=== PATIENT | female | born 1975 | race American Indian/Alaskan Native ===

== ENCOUNTER 2016-05-21 05:17 | Emergency (ER) | payer OTHER ==
[2016-05-21 06:12] LABS: Basophils % (Auto) 0.7 % (0.0-1.8); Hematocrit 32.3 % (30.3-42.9); Hemoglobin 10.1 gm/dl (10.1-14.3); Mean Corpuscular HGB Conc 31 % (30-34); Platelet Count 426 K/mm3 (140-440); Red Blood Count 4.79 M/mm3 (3.65-5.03); Red Cell Distribution Width 18.3 % (13.2-15.2); White Blood Count 9.3 K/mm3 (4.5-11.0)
[2016-05-21 06:13] LABS: Mean Corpuscular Hemoglobin 21 pg (28-32); Mean Corpuscular Volume 68 fl (79-97)
[2016-05-21 06:20] LABS: BUN/Creatinine Ratio 14.28; Blood Urea Nitrogen 10 mg/dL (7-17); Calcium 8.4 mg/dL (8.4-10.2); Carbon Dioxide 23 mmol/L (22-30); Chloride 104.5 mmol/L (98-107); Glucose 93 mg/dL (65-100); Potassium 3.7 mmol/L (3.6-5.0); Sodium 141 mmol/L (137-145)
[2016-05-21 06:21] LABS: Anion Gap 17 mmol/L
--- NOTE | 2016-05-21 11:37 | XRay Report ---
Chest 2 views: History: Chest pain. Findings: Borderline cardiomegaly. Trachea is midline. No consolidation, pneumothorax or pleural effusion. Impression: Borderline cardiomegaly. No acute changes.
--- NOTE | 2016-05-21 13:04 | Emergency Department Report ---
HPI - General Chief Complaint: Chest Pain Time Seen by Provider: 05/21/16 10:21 - HPI HPI: Chief complaint: Chest pain and sore throat HPI: Patient complains of right-sided chest pain sharp and radiates from the low her right scapula to her right anterior chest wall. Patient states it's worse when she moves her arm and takes a deep breath. Patient states she is not short of breath but it does hurt to breathe. Patient denies any cough or cold or fever. Patient states she does have sore throat and pain when she swallows to the right side of her neck. Patient denies hypertension, diabetes, recent surgery recheck travel history of coronary artery disease or family history of coronary artery disease and no history of DVTs. Mode of arrival: private car Source: Patient Began: 9:00 last night Duration: Continuous Context: See above Quality: Sharp Severity: 9 out of 10 Improved with: Nothing Worsened with: See above Associated signs and symptoms: See above ED Past Medical Hx - Past Medical History Previous Medical History?: No - Surgical History Past Surgical History?: Yes Additional Surgical History: - Social History Smoking Status: Never Smoker Substance Use Type: None - Medications Home Medications: Home Medications Medication Instructions Recorded Confirmed Last Taken Type Azithromycin [Zithromax TAB] 500 mg PO QDAY #3 tablet 05/21/16 Unknown Rx traMADol [Ultram 50 MG tab] 50 mg PO Q6HR PRN #20 tablet 05/21/16 Unknown Rx ED Review of Systems ROS: Stated complaint: CP/ADILENE Other details as noted in HPI ROS Constitutional: No fever ENT: See HPI Cardiovascular: chest pain Respiratory: No sob or cough GI: No nausea vomiting or diarrhea : No dysuria frequency or urgency, Skin: No rash Neuro: No focal weakness or numbness Psych: No depression Lamont/lymph: No edema Physical Exam - Physical Exam Vital Signs: Vital Signs 05/21/16 05/21/16 05/21/16 05:29 07:37 08:52 Temperature 98.5 F 98.6 F Pulse Rate 85 96 H Respiratory 18 20 18 Rate Blood Pressure 149/100 Blood Pressure 171/102 [Right] O2 Sat by Pulse 100 100 99 Oximetry 05/21/16 08:53 Temperature Pulse Rate 86 Respiratory 20 Rate Blood Pressure Blood Pressure 133/90 [Right] O2 Sat by Pulse 100 Oximetry Physical Exam: GENERAL: The patient is well-developed well-nourished . HEENT: Normocephalic. Atraumatic. Extraocular motions are intact. Patient has moist mucous membranes. NECK: Supple. No meningitic signs are noted. There is no adenopathy noted. Tenderness to the right anterior lateral neck without swelling or erythema. Pharynx is slightly enlarged tonsils without exudate. CHEST/LUNGS: Clear to auscultation. There is no respiratory distress noted. Tender right para lumbar musculature reproduces pain as does palpation to the right anterior chest wall. HEART/CARDIOVASCULAR: Regular. There is no tachycardia. There is no gallop rub or murmur. ABDOMEN: Abdomen is soft, nontender. Patient has normal bowel sounds. There is no abdominal distention. SKIN: There is no rash. There is no edema. There is no diaphoresis. NEURO: The patient is awake, alert, and oriented. The patient is cooperative. The patient has no focal neurologic deficits. The patient has normal speech. MUSCULOSKELETAL: There is no tenderness or deformity. There is no limitation range of motion. There is no evidence of acute injury. ED Course Vital Signs 05/21/16 05/21/16 05/21/16 05:29 07:37 08:52 Temperature 98.5 F 98.6 F Pulse Rate 85 96 H Respiratory 18 20 18 Rate Blood Pressure 149/100 Blood Pressure 171/102 [Right] O2 Sat by Pulse 100 100 99 Oximetry 05/21/16 08:53 Temperature Pulse Rate 86 Respiratory 20 Rate Blood Pressure Blood Pressure 133/90 [Right] O2 Sat by Pulse 100 Oximetry ED Medical Decision Making - Lab Data Result diagrams: 05/21/16 05:43 05/21/16 05:43 Laboratory Tests 05/21/16 05/21/16 05/21/16 05:43 08:45 12:01 Calcium 8.4 Troponin T < 0.010 < 0.010 < 0.010 - EKG Data -: EKG Interpreted by Me EKG shows normal: sinus rhythm Rate: normal (91) - EKG Data When compared to previous EKG there are: previous EKG unavailable Interpretation: normal EKG - Radiology Data interpreted by me: Chest x-ray within normal limits. Critical care attestation.: If time is entered above; I have spent that time in minutes in the direct care of this critically ill patient, excluding procedure time. ED Disposition Clinical Impression: Atypical chest pain Pharyngitis Qualifiers: Pharyngitis/tonsillitis etiology: unspecified etiology Qualified Code(s): J02.9 - Acute pharyngitis, unspecified Disposition: DISCHARGED TO HOME OR SELFCARE Is pt being admited?: No Does the pt Need Aspirin: No Condition: Stable Instructions: Chest Pain (ED), Pharyngitis (ED) Prescriptions: Azithromycin [Zithromax TAB] 500 mg PO QDAY #3 tablet traMADol [Ultram 50 MG tab] 50 mg PO Q6HR PRN #20 tablet PRN Reason: Pain Referrals: PRIMARY CARE,MD [Primary Care Provider] - 3-5 Days Time of Disposition: 12:54
[2016-05-21 13:19] VITALS: BP 129/87
== END 2016-05-21 13:19 | disposition home or self-care (01) ==
LOC: ED 05:17
DX: R07.89 Other chest pain (principal); J02.9 Acute pharyngitis, unspecified
CPT/HCPCS: 36415; 71020; 80048; 84484; 85025; 87116; 87430; 93005; 93010; 99285